=== PATIENT | female | born 1975 | race African-American/Black ===

== ENCOUNTER 2019-11-22 15:54 | Emergency (ER) | payer SELFPAY ==
[~2019-11-22] VITALS: Ht 157.5 cm; Wt 90.9 kg
[2019-11-22 16:27] VITALS: Ht 157.5 cm; Wt 90.9 kg
[2019-11-22 17:24] VITALS: BP 138/77
[2019-11-22] MEDS ORDERED: CLARITIN 10 MG10 MG PO (18:21)
[2019-11-22] MEDS ORDERED: TAMIFLU75 MG PO (18:21)
== END 2019-11-23 19:13 | disposition home or self-care (01) ==
LOC: D.ER 15:54
DX: J11.1 Influenza due to unidentified influenza virus with other respiratory manifestations (principal); E78.5 Hyperlipidemia, unspecified; M79.7 Fibromyalgia; G62.9 Polyneuropathy, unspecified